=== PATIENT | female | born 1985 | race Hispanic/Latino ===

== ENCOUNTER 2020-06-07 21:09 | Emergency (ER) | payer MEDICAID ==
[2020-06-07] MEDS ORDERED: ACETAMINOPHEN-CODEINE 300/30MG TAB ONE (21:52)
[2020-06-07 22:16] LABS: APPEARANCE,URINE Cloudy (CLEAR); BILIRUBIN,URINE Negative (NEGATIVE); COLOR,URINE Yellow (YELLOW); GLUCOSE, URINE (UA) Negative (NEGATIVE); KETONES,URINE Negative (NEGATIVE); LEUKOCYTE ESTERASE ,URINE Large (NEGATIVE); NITRATE,URINE Negative (NEGATIVE); OCCULT BLOOD,URINE Trace (NEGATIVE); PROTEIN,URINE Negative (NEGATIVE); UROBILINOGEN,URINE 0.2 mg/dL (0.2-1.0)
[2020-06-07 22:21] LABS: HCG,QUAL RESULT NEGATIVE (NEGATIVE)
[2020-06-07 22:39] LABS: BACTERIA,URINE Few /HPF (None Seen); RBC,URINE 0-1 /HPF (0-1)
[2020-06-07 22:40] LABS: TRICHOMONAS,URINE Few /LPF (None Seen); YEAST,URINE BUDDING Rare /HPF (None Seen)
[2020-06-07 22:41] LABS: SQUAMOUS EPITHELIAL CELL,UR Moderate /HPF (0-2)
[2020-06-07] MEDS ORDERED: CEFTRIAXONE SODIUM 1 GM ONE ×2 (23:30→23:43)
[2020-06-07] MEDS ORDERED: KETOROLAC TROMETHAMINE 30MG/ML ONE (23:30)
[2020-06-07] MEDS ORDERED: LIDOCAINE HCL-MPF 1% 2ML VIAL ONE ×2 (23:30→23:42)
== END 2020-06-08 00:05 | disposition home or self-care (01) ==
LOC: EDH 21:09
DX: N39.0 Urinary tract infection, site not specified (principal); M54.5 Low back pain; Z90.710 Acquired absence of both cervix and uterus
CPT/HCPCS: 81001; 81025; 87088; 96372 ×2; 99284; J0696 ×2; J1885; J3490 ×2